=== PATIENT | male | born 1995 | race Asian ===

== ENCOUNTER 2025-05-16 19:14 | Emergency (ER) | payer BC ==
[~2025-05-16] VITALS: Ht 177.8 cm; Wt 100.0 kg
[2025-05-16 19:21] VITALS: O2SAT 98
[2025-05-16 20:27] VITALS: BP 142/98; PULSE 88; RESP 12; TEMP 37; O2SAT 98
== END 2025-05-16 20:47 | disposition left against medical advice (07) ==
LOC: ER 19:14
DX: K29.70 Gastritis, unspecified, without bleeding (principal)
CPT/HCPCS: 99283